=== PATIENT | female | born 1970 ===

== ENCOUNTER 2018-06-03 10:38 | Emergency (ER) | payer MEDICAID ==
[2018-06-03 11:01] VITALS: TEMP 98.5; O2SAT 99
--- NOTE | 2018-06-03 12:16 | ED PDOC ---
HPI: Skin/Bite Injury Time Seen by Provider: 06/03/18 11:12 Chief Complaint (Nursing): Abnormal Skin Integrity Chief Complaint (Provider): Abnormal Skin Integrity History Per: Patient History/Exam Limitations: no limitations Onset/Duration Of Symptoms: Days (x4 days ago) Additional Complaint(s): Celine Del Cid is a 48 year old female with no past medical history, who presents to the emergency department with a bump on her left back and left arm pit, onset x4 days ago. Patient states that it is painful but that there is no drainage. PMD: Althea Fournier Past Medical History Reviewed: Historical Data, Nursing Documentation, Vital Signs Vital Signs: Last Vital Signs Temp 98.5 F 06/03/18 11:01 Pulse 72 06/03/18 11:01 Resp 19 06/03/18 11:01 BP 143/83 06/03/18 11:01 Pulse Ox 99 06/03/18 11:01 - Medical History PMH: No Chronic Diseases - Surgical History Surgical History: No Surg Hx - Family History Family History: States: Unknown Family Hx - Home Medications Home Medications: Ambulatory Orders Medication Instructions Recorded Ibuprofen [Motrin] 600 mg PO Q6H PRN #20 tab 06/03/18 Sulfamethoxazole/Trimethoprim 1 tab PO BID #14 tab 06/03/18 [Bactrim DS 800 mg-160 mg] - Allergies Allergies/Adverse Reactions: Allergies Allergy/AdvReac Type Severity Reaction Status Date / Time No Known Allergies Allergy Verified 06/03/18 11:15 Review of Systems ROS Statement: Except As Marked, All Systems Reviewed And Found Negative Skin: Positive for: Other (painful bump on left back and armpit; no drainage ) Physical Exam - Reviewed Nursing Documentation Reviewed: Yes Vital Signs Reviewed: Yes - Physical Exam Appears: Positive for: Non-toxic, No Acute Distress Head Exam: Positive for: ATRAUMATIC, NORMOCEPHALIC Skin: Positive for: Normal Color (no vesicles, drainage, or crepitus), Warm, Dry Eye Exam: Positive for: Normal appearance, EOMI, PERRL ENT: Positive for: Normal ENT Inspection Neck: Positive for: Normal, Painless ROM, Supple Cardiovascular/Chest: Positive for: Regular Rate, Rhythm, Other (half cm non- fluctuant mass and minimally surrounding induration on left flank; quarter of cm bump on left axilla ). Negative for: Murmur Respiratory: Positive for: Normal Breath Sounds. Negative for: Respiratory Distress Gastrointestinal/Abdominal: Positive for: Normal Exam, Soft. Negative for: Tenderness Back: Positive for: Normal Inspection. Negative for: L CVA Tenderness, R CVA Tenderness, Vertebral Tenderness Extremity: Positive for: Normal ROM. Negative for: Pedal Edema, Deformity Neurologic/Psych: Positive for: Alert, Oriented (x3). Negative for: Carolin r/Sensory Deficits - ECG O2 Sat by Pulse Oximetry: 99 (RA) Pulse Ox Interpretation: Normal Medical Decision Making Medical Decision Making: Initial Time:12:14 Initial Impression: Cellulitis Initial Plan: --ED Urine Scribe Attestation: Documented by Sin Bautista, acting as a scribe for Margaret Kee MD. Provider Scribe Attestation: All medical record entries made by the Scribe were at my direction and personally dictated by me. I have reviewed the chart and agree that the record accurately reflects my personal performance of the history, physical exam, medical decision making, and the department course for this patient. I have also personally directed, reviewed, and agree with the discharge instructions and disposition. Disposition - Clinical Impression Clinical Impression: Cellulitis - Disposition Disposition Time: 12:10 Condition: GOOD Additional Instructions: EL SEGUIMIENTO CON GARCIA MEDICO EN UN PLAZO DE 2 MEZA PARA LA REEVALUACION. Prescriptions: Ibuprofen [Motrin] 600 mg PO Q6H PRN #20 tab PRN Reason: Pain, Moderate (4-7) Sulfamethoxazole/Trimethoprim [Bactrim DS 800 mg-160 mg] 1 tab PO BID #14 tab Instructions: Cellulitis and Erysipelas (Skin Infections) Forms: [employer] (Georgian), [employer] (Guyanese) Print Language: AUSTRALIAN
[2018-06-03 13:29] VITALS: BP 140/80; PULSE 70; RESP 18
== END 2018-06-03 12:37 | disposition home or self-care (01) ==
LOC: H.ER 10:38
DX: L03.90 Cellulitis, unspecified (principal)

== ENCOUNTER 2018-06-08 18:32 | Emergency (ER) | payer MEDICAID ==
[2018-06-08 19:08] VITALS: BP 146/76; PULSE 90; TEMP 98.6
[2018-06-08 19:10] VITALS: RESP 18; O2SAT 99
--- NOTE | 2018-06-08 21:19 | ED PDOC ---
HPI: Wound Care - HPI Time Seen by Provider: 06/08/18 19:23 Chief Complaint (Nursing): Abnormal Skin Integrity Chief Complaint (Provider): Wound check History Per: Patient Exam Limitations: no limitations Additional Complaint(s): 48 year old female presents to the ED for wound check. Patient was seen in this ED on 06/03 for an abscess and was given Bactrim and Ibuprofen. She states she has been taking antibiotics as prescribed and has been applying warm compresses twice a day. She reports wound began draining 2 days ago. Patient is also reporting localized pain. Denies fever or chills. PMD: Rai Dunne Past Medical History Reviewed: Historical Data, Nursing Documentation, Vital Signs Vital Signs: Last Vital Signs Temp 98.6 F 06/08/18 19:07 Pulse 90 06/08/18 19:07 Resp 18 06/08/18 19:07 BP 146/76 06/08/18 19:07 Pulse Ox 99 06/08/18 19:07 - Medical History PMH: No Chronic Diseases - Surgical History Surgical History: Cholecystectomy - Family History Family History: States: Unknown Family Hx - Home Medications Home Medications: Ambulatory Orders Medication Instructions Recorded Ibuprofen [Motrin] 600 mg PO Q6H PRN #20 tab 06/03/18 Sulfamethoxazole/Trimethoprim 1 tab PO BID #14 tab 06/03/18 [Bactrim DS 800 mg-160 mg] - Allergies Allergies/Adverse Reactions: Allergies Allergy/AdvReac Type Severity Reaction Status Date / Time No Known Allergies Allergy Verified 06/03/18 11:15 Review of Systems ROS Statement: Except As Marked, All Systems Reviewed And Found Negative Constitutional: Negative for: Fever, Chills Skin: Positive for: Other (Wound drainage) Physical Exam - Reviewed Nursing Documentation Reviewed: Yes Vital Signs Reviewed: Yes - Physical Exam Appears: Positive for: Non-toxic, No Acute Distress Head Exam: Positive for: ATRAUMATIC, NORMOCEPHALIC Skin: Positive for: Normal Color, Warm, Dry Eye Exam: Positive for: Normal appearance Neck: Positive for: Normal, Painless ROM Respiratory: Negative for: Respiratory Distress Back: Positive for: Other (3cm abscess on the left middle back with active puss drainage; localized erythema) Extremity: Positive for: Normal ROM Neurologic/Psych: Positive for: Alert, Oriented. Negative for: Motor/Sensory Deficits - ECG O2 Sat by Pulse Oximetry: 99 (RA) Pulse Ox Interpretation: Normal Medical Decision Making Medical Decision Making: Initial Impression: wound check Initial Plan: Patient instructed to do warm compresses more often, to keep area clean, and continue antibiotics. Patient advised to return to the ED if fever or chills de velop or if symptoms worsen. Scribe Attestation: Documented by Angel Luis Treviño acting as a scribe for Kimberlyn FARAH. Provider Scribe Attestation: All medical record entries made by the Scribe were at my direction and personally dictated by me. I have reviewed the chart and agree that the record accurately reflects my personal performance of the history, physical exam, medical decision making, and the department course for this patient. I have also personally directed, reviewed, and agree with the discharge instructions and disposition. Disposition - Clinical Impression Clinical Impression: Wound check, abscess - Patient ED Disposition Is Patient to be Admitted: No Counseled Patient/Family Regarding: Diagnosis, Need For Followup - Disposition Disposition: Routine/Home Disposition Time: 21:19 Condition: GOOD Additional Instructions: Continue antibiotics and warm compresses. Instructions: Abscess Incision and Drainage (DC) Forms: [employer] (Lao) Print Language: ITALIAN
== END 2018-06-08 21:23 | disposition home or self-care (01) ==
LOC: H.ER 18:32
DX: M54.9 Dorsalgia, unspecified (principal); L02.212 Cutaneous abscess of back [any part, except buttock and flank]; Z48.00 Encounter for change or removal of nonsurgical wound dressing

== ENCOUNTER 2018-07-05 15:22 | Emergency (ER) | payer MEDICAID ==
[2018-07-05 15:36] VITALS: RESP 18
[2018-07-05] MEDS ORDERED: Sodium Chloride 0.9% 1,000 ML IV SCH (16:45)
[2018-07-05 17:15] LABS: BASO % 0.4 % (0.0-2.0); EOS % 0.4 % (0.0-4.0); HEMOGLOBIN 11.6 g/dL (12.0-16.0); LYMPH # 0.7 K/uL (1.0-4.3); LYMPH % 10.2 % (20.0-40.0); MEAN CELL VOLUME 83.4 fl (81.0-99.0); MEAN CORPUSCULAR HEMOGLOBIN 28.1 pg (27.0-31.0); MEAN CORPUSCULAR HGB CONC 33.7 g/dL (33.0-37.0); MEAN PLATELET VOLUME 8.3 fl (7.2-11.7); MONO # 1.1 K/uL (0.0-0.8); MONO % 15.6 % (0.0-10.0); NEUT # 5.3 K/uL (1.8-7.0); NEUT % 73.4 % (50.0-75.0); RBC 4.13 Mil/uL (3.80-5.20); RED CELL DISTRIBUTION WIDTH 14.3 % (11.5-14.5); WHITE BLOOD COUNT 7.2 K/uL (4.8-10.8)
[2018-07-05 17:17] LABS: URINE BILIRUBIN NEGATIVE (NEGATIVE); URINE BLOOD LARGE (NEGATIVE); URINE CLARITY CLOUDY (Clear); URINE COLOR AMBER (YELLOW); URINE GLUCOSE (UA) NEG (Normal); URINE LEUKOCYTE ESTERASE NEG Leu/uL (Negative); URINE PROTEIN 30 mg/dL (NEGATIVE)
[2018-07-05 17:29] LABS: BLOOD UREA NITROGEN 8 mg/dl (7-17); GFR NON-AFRICAN AMERICAN > 60
--- NOTE | 2018-07-05 17:36 | RAD ---
Date of service: 07/05/2018 PROCEDURE: Radiographs of the chest and abdomen (obstructive series) HISTORY: nausea COMPARISON: No prior. TECHNIQUE: AP radiograph of the chest, with upright and supine radiographs of the abdomen. FINDINGS: CHEST: Lungs: Clear. Cardiovascular: Normal size heart. No pulmonary vascular congestion. No aortic atherosclerotic calcification present Pleura: No pleural fluid. No pneumothorax. Other findings: None. ABDOMEN AND PELVIS: Bowel: Gas seen in a few small-bowel loops which are mildly distended but without definitive air-fluid level formation. Gas is seen scattered throughout various large-bowel segments as well. This is a nonspecific bowel gas pattern at this time though obstruction is not felt to be definitively shown. Free air: None. Bones: Unremarkable. Other findings: No abnormal intra-abdominal calcifications. IMPRESSION: Nonspecific bowel gas pattern with gas seen in several large and small bowel loops. No free intra peritoneal gas collection. No abnormal internal calcifications. Unremarkable chest radiograph.
[2018-07-05 17:39] LABS: ALT/SGPT 131 U/L (9-52); AST/SGOT 114 U/L (14-36)
--- NOTE | 2018-07-05 19:32 | ED PDOC ---
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 denies: Fever, Chills, Vomiting, Diarrhea Exacerbating Factors: Movement Additional Complaint(s): Pt. reports lower and mid back pain radiating to flank bilaterally x 6 days, associated with nausea (-) vomiting, 9-) diarrhea. Pt. denies fevers. Pt. reports symptoms started just after eating out at a [employer] restaurant. Pt. has been taking tylenol for pain with just temporary relief. Past Medical History Reviewed: Historical Data, Nursing Documentation, Vital Signs Vital Signs: Last Vital Signs Temp 100 F H 07/05/18 15:32 Pulse 108 H 07/05/18 15:32 Resp 18 07/05/18 15:32 BP 117/76 07/05/18 15:32 Pulse Ox 98 07/05/18 15:32 - Medical History PMH: No Chronic Diseases - Surgical History Surgical History: Cholecystectomy - Family History Family History: States: Unknown Family Hx - Home Medications Home Medications: Ambulatory Orders Medication Instructions Recorded Ibuprofen [Motrin] 600 mg PO Q6H PRN #20 tab 06/03/18 Sulfamethoxazole/Trimethoprim 1 tab PO BID #14 tab 06/03/18 [Bactrim DS 800 mg-160 mg] Azithromycin [Zithromax] 250 mg PO DAILY 4 Days #4 tab 07/05/18 Ibuprofen [Motrin Tab] 600 mg PO Q8 5 Days #15 tab 07/05/18 - Allergies Allergies/Adverse Reactions: Allergies Allergy/AdvReac Type Severity Reaction Status Date / Time No Known Allergies Allergy Verified 06/03/18 11:15 Review of Systems ROS Statement: Except As Marked, All Systems Reviewed And Found Negative Constitutional: Negative for: Fever, Chills Gastrointestinal: Positive for: Abdominal Pain Physical Exam - Reviewed Nursing Documentation Reviewed: Yes Vital Signs Reviewed: Yes - Physical Exam Appears: Positive for: Well, Non-toxic Head Exam: Positive for: ATRAUMATIC Skin: Positive for: Normal Color, Warm, Dry Cardiovascular/Chest: Positive for: Regular Rate, Rhythm Respiratory: Positive for: Normal Breath Sounds Gastrointestinal/Abdominal: Positive for: Normal Exam, Soft, Tenderness (mild suprapubic tenderness. ) Back: Positive for: Normal Inspection, L CVA Tenderness, R CVA Tenderness. Neg ative for: Vertebral Tenderness - Laboratory Results Result Diagrams: 07/05/18 17:13 07/05/18 17:13 - ECG O2 Sat by Pulse Oximetry: 98 Medical Decision Making Medical Decision Making: IV access established, labs sent, UA sent IV NS IV Toradol IV Zofran Obs. Series: napd, nonobstructive bowel gas pattern; as read by me CT abd/pelvis: Dense LLL consolidation is noted compatible with pneumonia Enlarged bulky uterus c/w duffuse adenomyosis vs. myomatosis. All the above ct results d/w pt. Zithro po given for pneumonia. Stressed importance of f/u for uterine findings. On reassessment, pt. reports feeling better, but still has bilateral lower back and b/l CVA tenderness. Labs as above, include a mild transaminitis. Pt denies recent etoh but reports she has been taking tylenol frequently over past 5-6 days for pain. On re-exam, no abd. tenderness, no RUQ tenderness or hepatomegaly. Disposition - Clinical Impression Clinical Impression: Pneumonia - Patient ED Disposition Is Patient to be Admitted: No Counseled Patient/Family Regarding: Studies Performed, Diagnosis, Need For Followup, Rx Given - Disposition Disposition: Routine/Home Disposition Time: 20:18 Condition: STABLE Prescriptions: Azithromycin [Zithromax] 250 mg PO DAILY 4 Days #4 tab Ibuprofen [Motrin Tab] 600 mg PO Q8 5 Days #15 tab Instructions: Pneumonia, Adult (DC) Forms: [employer] (Guamanian), [facility] ED School/Work Excuse
[2018-07-05 19:41] VITALS: BP 128/73; PULSE 84; TEMP 99
[2018-07-05 20:13] VITALS: O2SAT 98
--- NOTE | 2018-07-06 10:23 | CT ---
Date of service: 07/05/2018 PROCEDURE: CT Abdomen and Pelvis without intravenous contrast HISTORY: bilateral flank pain, hematuria COMPARISON: None. TECHNIQUE: Helical CT of the abdomen and pelvis was performed without oral or intravenous contrast as per referring physician request. Coronal and sagittal reformats were generated. Contrast dose: None Radiation dose: Total exam DLP = 673.21 mGy-cm. This CT exam was performed using one or more of the following dose reduction techniques: Automated exposure control, adjustment of the mA and/or kV according to patient size, and/or use of iterative reconstruction technique. FINDINGS: LOWER THORAX: Left lower lobe infiltrate. Right base clear. No cardiomegaly or pleural effusion bilaterally. LIVER: Unremarkable. No gross lesion or ductal dilatation. GALLBLADDER AND BILE DUCTS: Surgically absent gallbladder. PANCREAS: Unremarkable. No gross lesion or ductal dilatation. SPLEEN: Unremarkable. ADRENALS: Unremarkable. No mass. KIDNEYS AND URETERS: Unremarkable. No hydronephrosis. No solid mass. VASCULATURE: Unremarkable. No aortic aneurysm. No aortic atherosclerotic calcification or mural plaque present. BOWEL: Unremarkable. No obstruction. No gross mural thickening. APPENDIX: Unremarkable. Normal appendix. PERITONEUM: Unremarkable. No free fluid. No free air. LYMPH NODES: Unremarkable. No enlarged lymph nodes. BLADDER: Unremarkable. REPRODUCTIVE: Enlarged uterus potentially from myomatous uterine changes though this is definite. Follow-up ultrasound is recommended for added characterization. BONES: No acute fracture. OTHER FINDINGS: None. IMPRESSION: 1. No definite acute abdominal or pelvic findings. No radiodense urolithiasis or obstructive uropathy bilaterally. No significant perinephric reaction bilaterally. 2. Bulky uterus suggestive of possible underlying myomatous uterine changes. Follow ultrasonography may be helpful for further characterization. 3. Incidental left lower lobe pneumonitis. Concordant preliminary report from [email or web address], 07/05/2018.
== END 2018-07-05 20:47 | disposition home or self-care (01) ==
LOC: H.ER 15:22
DX: J18.9 Pneumonia, unspecified organism (principal)
CPT/HCPCS: 74022; 74176; 80053; 81003; 81025; 85025; 87086; 96374; 99285; J2405; J7030

== ENCOUNTER 2019-01-03 15:26 | Emergency (ER) | payer MEDICAID ==
[2019-01-03 15:41] VITALS: TEMP 98.7
--- NOTE | 2019-01-03 16:05 | ED PDOC ---
Lower Extremity Pain/Injury Time Seen by Provider: 01/03/19 15:41 Chief Complaint (Nursing): Lower Extremity Problem/Injury Chief Complaint (Provider): Lower Extremity Problem/Injury History Per: Patient History/Exam Limitations: no limitations Onset/Duration Of Symptoms: Days Current Symptoms Are (Timing): Still Present Additional Complaint(s): 48 y/o female with no significant PMHx presents to the ED for evaluation of lower extremity pain s/p fall, onset one day ago. Patient states she was wearing sneakers, walking down a narrow hallway when there was an unexpected slight dip in elevation causing her to step incorrectly twisting her right ankle and falling. Patient notes pain has worsened since fall and is worse with movements. Patient states she cannot ambulate on the ankle due to pain. Patient reports she has had to put most of her weight on her left foot additionally causing her pain. Patient states pain in the right ankle radiates up the leg to below the knee. Patient notes of also experiencing pain to the left mid-back. However, patient denies hitting against any objects. Patient believes back pain could be due to a twisting motion she did to catch her fall. PMD: Rai Dove Past Medical History Reviewed: Historical Data, Nursing Documentation, Vital Signs Vital Signs: Last Vital Signs Temp 98.7 F 01/03/19 15:37 Pulse 84 01/03/19 15:37 Resp 20 01/03/19 15:37 BP 116/64 01/03/19 15:37 Pulse Ox 98 01/03/19 15:37 Primary Care Provider: Rai Dove - Medical History PMH: No Chronic Diseases - Surgical History Surgical History: Cholecystectomy - Family History Family History: States: Unknown Family Hx - Living Arrangements Living Arrangements: With Family - Home Medications Home Medications: Ambulatory Orders Medication Instructions Recorded Ibuprofen [Motrin] 600 mg PO Q6H PRN #20 tab 06/03/18 Sulfamethoxazole/Trimethoprim 1 tab PO BID #14 tab 06/03/18 [Bactrim DS 800 mg-160 mg] Azithromycin [Zithromax] 250 mg PO DAILY 4 Days #4 tab 07/05/18 Ibuprofen [Motrin Tab] 600 mg PO Q8 5 Days #15 tab 07/05/18 Naproxen 500 mg PO BID PRN #30 tab 01/03/19 traMADol [Ultram] 50 mg PO TID PRN #9 tab 01/03/19 - Allergies Allergies/Adverse Reactions: Allergies Allergy/AdvReac Type Severity Reaction Status Date / Time No Known Allergies Allergy Verified 01/03/19 15:37 Review of Systems ROS Statement: Except As Marked, All Systems Reviewed And Found Negative Musculoskeletal: Positive for: Back Pain, Leg Pain, Foot Pain Physical Exam - Reviewed Nursing Documentation Reviewed: Yes Vital Signs Reviewed: Yes - Physical Exam Comments: GENERAL APPEARANCE: Patient is awake, alert, oriented x 3, in no acute distress. SKIN: Warm, dry; (-) cyanosis. EYES: (-) conjunctival pallor. ENMT: Mucous membranes moist. NECK: (-) tenderness, (-) stiffness, (-) lymphadenopathy. CHEST AND RESPIRATORY: (-) rales, (-) rhonchi, (-) wheezes; breath sounds equal bilaterally. HEART AND CARDIOVASCULAR: (-) irregularity; (-) murmur, (-) gallop. ABDOMEN AND GI: Soft; (-) tenderness; (-) palpable mass. BACK: (-) midline tenderness, (+) left lumbar muscle tenderness, (-) ecchymosis (-) mild spasm, (-) direct bony tenderness, (-) deformity. Straight leg raising (-) bilaterally. (-)CVAT EXTREMITIES: Full ROM of all toes, knees and hips. (+) decreased dorsiflexion of the right ankle, (+) bilateral lateral malleolus tenderness, (-) medial malleolous tenderness, (+) swelling to the lateral ankle (right > left), (-) deformity. Distal pulses 2+ bilaterally. Achilles tendon intact and nontender. NEURO AND PSYCH: Mental status as above. Intact sensation bilaterally; normal strength in extension of the knees, plantar and dorsiflexion of the toes. DTRs symmetric. - ECG O2 Sat by Pulse Oximetry: 98 (RA) Pulse Ox Interpretation: Normal Medical Decision Making Medical Decision Making: Time: 1553 Impression: Ankle pain s/p fall Rule out fractures Plan: -- Will order medications for pain and muscle relaxation -- ED Urine -- Ankle Complete 3 Views BI XR -- Flexeril 10 mg PO -- Motrin 600 mg PO -- Tibia Fibula Right Xr -- Urinalysis Date of service: 01/03/2019 PROCEDURE: Radiographs of the right tibia and fibula. HISTORY: fall, lateral pain and swelling COMPARISON: None available TECHNIQUE: Frontal and lateral views obtained. 2 views obtained. FINDINGS: BONES: No fracture or destructive lesion. JOINT SPACES: Unremarkable. OTHER FINDINGS: None. IMPRESSION: Unremarkable radiographs of the right tibia and fibula. Date of service: 01/03/2019 PROCEDURE: Bilateral Ankle Radiographs. HISTORY: fall, b/l lateral pain and swelling COMPARISON: None available. TECHNIQUE: 6 views obtained. FINDINGS: BONES: Right Ankle: Oblique fracture distal fibula. No tibial fracture. Left Ankle: Normal. No fracture. JOINTS: Right Ankle: Normal. No osteoarthritis. Ankle mortise maintained. Talar dome intact. Left Ankle: Normal. No osteoarthritis. Ankle mortise maintained. Talar dome intact. SOFT TISSUES: Right Ankle: Lateral soft tissue swelling Left Ankle: Normal. OTHER FINDINGS: None. IMPRESSION: Oblique nondisplaced fracture distal right fibula. 17:10 spoke to podiatry who will come see pt Pt seen by podiatry, posterior splint placed, non weight bearing, clinic f/u in 1 week 19:40 on re eval pt reports back pain is resolved, but continues with a lot of ankle pain, will give Rx for Tramadol No results on [place] [employer] Rx search for [place], YAYO [place] Discussed results, diagnosis, treatment, return precautions and f/u with pt who is understanding, in agreement and stable for dc Scribe Attestation: Documented by Víctor Gonsalves, acting as a scribe for Orville Choi PA-C. Provider Scribe Attestation: All medical record entries made by the Scribe were at my direction and personally dictated by me. I have reviewed the chart and agree that the record accurately reflects my personal performance of the history, physical exam, medical decision making, and the department course for this patient. I have also personally directed, reviewed, and agree with the discharge instructions and disposition. Disposition - Clinical Impression Clinical Impression: Fracture of fibula, right, closed, Low back pain, Fall from slip, trip, or stumble - Patient ED Disposition Is Patient to be Admitted: No Counseled Patient/Family Regarding: Studies Performed, Diagnosis, Need For Followup, Rx Given - Disposition Referrals: Podiatry Clinic [Outside] Disposition: Routine/Home Disposition Time: 19:43 Condition: STABLE Additional Instructions: Roslyn por dejarnos cuidar de ti hoy. La atencin mdica de emergencia que recibi hoy se dirigi a luis manuel sntomas agudos. Si le recetaron algn medicamento, llnelo y tmelo segn las indicaciones. No conduzca, opere maquinaria pesada o tome alcohol cuando tome tramadol. Descansa, hielo y eleva tu pierna. Usa muletas para no poner peso en el pie. Mantenga la frula limpia y seca, mantngala hasta el seguimiento. Los sntomas pueden tardar varios polanco en resolverse. Regrese al Departamento de Emergencias si luis manuel sntomas empeoran, no mejoran o si tiene otros problemas. Comunquese con singh mdico dentro de 2 polanco para annelise nueva evaluacin y julia un seguimiento o llame a emmanuelle de los mdicos / clnicas a los que craig sido referido y que figuran en el formulario de Informacin de visita al paciente que se incluye en singh paquete de sandor. Lleve todos los documentos que recibi al momento del sandor junto con los medicamentos que est tomando para singh visita de seguimiento. Nuestro tratamiento no puede reemplazar la atencin mdica continua por parte de un proveedor de atencin primaria (PCP) fuera del departamento de emergencias. Prescriptions: Naproxen 500 mg PO BID PRN #30 tab PRN Reason: Pain, Moderate (4-7) traMADol [Ultram] 50 mg PO TID PRN #9 tab PRN Reason: Pain, Severe (8-10) Instructions: Low Back Pain (DC), Fibula Fracture (DC) Forms: [facility] ED School/Work Excuse Print Language: PORTUGUESE - POA Present On Arrival: Falls Or Trauma
[2019-01-03 16:55] LABS: SQUAMOUS EPITHIAL 11 /hpf (0-5); URINE BILIRUBIN NEGATIVE (NEGATIVE); URINE BLOOD MODERATE (NEGATIVE); URINE CLARITY CLOUDY (Clear); URINE COLOR YELLOW (YELLOW); URINE GLUCOSE (UA) NEG (NEGATIVE); URINE LEUKOCYTE ESTERASE LARGE Leu/uL (Negative); URINE PROTEIN NEGATIVE (NEGATIVE); URINE UROBILINOGEN 0.2-1.0 mg/dL (0.2-1.0)
--- NOTE | 2019-01-03 16:56 | RAD ---
Date of service: 01/03/2019 PROCEDURE: Radiographs of the right tibia and fibula. HISTORY: fall, lateral pain and swelling COMPARISON: None available TECHNIQUE: Frontal and lateral views obtained. 2 views obtained. FINDINGS: BONES: No fracture or destructive lesion. JOINT SPACES: Unremarkable. OTHER FINDINGS: None. IMPRESSION: Unremarkable radiographs of the right tibia and fibula.
--- NOTE | 2019-01-03 16:59 | RAD ---
Date of service: 01/03/2019 PROCEDURE: Bilateral Ankle Radiographs. HISTORY: fall, b/l lateral pain and swelling COMPARISON: None available. TECHNIQUE: 6 views obtained. FINDINGS: BONES: Right Ankle: Oblique fracture distal fibula. No tibial fracture. Left Ankle: Normal. No fracture. JOINTS: Right Ankle: Normal. No osteoarthritis. Ankle mortise maintained. Talar dome intact. Left Ankle: Normal. No osteoarthritis. Ankle mortise maintained. Talar dome intact. SOFT TISSUES: Right Ankle: Lateral soft tissue swelling Left Ankle: Normal. OTHER FINDINGS: None. IMPRESSION: Oblique nondisplaced fracture distal right fibula.
--- NOTE | 2019-01-03 19:03 | CP.PCM.CON ---
History of Present Illness - History of Present Illness History of Present Illness: Podiatry consult note for Dr. Ramirez 48 y/o female with no significant PMHx presents to the ED for evaluation of lower extremity pain s/p fall, onset one day ago. Patient states she was drinking alcohol last night and twisted her right ankle and fell. Patient states she is unable to walk on the right foot because of pain. Patient reports she has had to put most of her weight on her left foot additionally causing her pain. Patient states pain in the right ankle radiates up the leg to below the knee. Rates her pain 10/10. Denies any other pedal complains. Denies f/n/v/sob. PMD: Rai Dove Pmhx: none Pshx: cholecystectomy Allergies: NKFDA Social hx: admits to drinking alcohol, denies smoking or using recreational drugs Past Patient History - Past Social History Smoking Status: Never Smoked - CARDIAC Hx Cardiac Disorders: No - PSYCHIATRIC Hx Substance Use: No - SURGICAL HISTORY Hx Cholecystectomy: Yes - ANESTHESIA Hx Anesthesia: Yes Hx Anesthesia Reactions: No Meds Allergies/Adverse Reactions: Allergies Allergy/AdvReac Type Severity Reaction Status Date / Time No Known Allergies Allergy Verified 01/03/19 15:37 Physical Exam - Constitutional Appears: Well, Non-toxic, No Acute Distress - Head Exam Head Exam: ATRAUMATIC, NORMOCEPHALIC - Eye Exam Eye Exam: Normal appearance - ENT Exam ENT Exam: Mucous Membranes Moist - Respiratory Exam Respiratory Exam: NORMAL BREATHING PATTERN - Cardiovascular Exam Cardiovascular Exam: REGULAR RHYTHM, +S1, +S2 - Extremities Exam Additional comments: Bilateral lower extremity exam: Vascular: Dp/PT 2/4, CFT <3 secs x 10, TG warm to warm, minimal edema to lateral aspect of the right ankle, no ecchymosis or erythema noted derm: no open lesions, no clinical signs of infection, no pitting edema to the ankle ortho: pain with ROM of the right ankle, pain with inversion and eversion of the right ankle, pain with direct palpation to the right distal leg, pain with compression of the distal leg. neuro: protective sensation grossly intact. - Neurological Exam Neurological exam: Alert, Oriented x3 Results - Vital Signs Recent Vital Signs: Last Vital Signs Temp 98.7 F 01/03/19 15:37 Pulse 84 01/03/19 15:37 Resp 20 01/03/19 15:37 BP 116/64 01/03/19 15:37 Pulse Ox 98 01/03/19 17:13 - Labs Labs: Laboratory Results - last 24 hr 01/03/19 16:42 Urine Color Yellow Urine Clarity Cloudy Urine pH 6.0 Ur Specific Bells 1.015 Urine Protein Negative Urine Glucose (UA) Neg Urine Ketones Negative Urine Blood Moderate Urine Nitrate Negative Urine Bilirubin Negative Urine Urobilinogen 0.2-1.0 Ur Leukocyte Esterase Large Urine RBC (Auto) 2 Urine Microscopic WBC 2 Ur Squamous Epith Cells 11 H Assessment & Plan - Assessment and Plan (Free Text) Assessment: 48 yo female seen and evaluated for oblique fracture of the distal fibula and possible syndesmotic injury to the right leg. Plan: Patient seen and evaluated chart, labs, vitals and x-rays reviewed. x-rays reviewed; oblique fracture of the lateral malleolus Well padded posterior splint applied patient to be NWB to the RLE ; crutch trained by the ED patient advised to RICE patient to take pain medications prn Patient showed verbal understanding Patient to follow up Stress view to be ordered to evaluate deltoid ligament when patient follows up. thank you for the consult
[2019-01-03 20:19] VITALS: BP 126/74; PULSE 89; RESP 18
[2019-01-04 00:34] VITALS: O2SAT 98
== END 2019-01-03 20:17 | disposition home or self-care (01) ==
LOC: H.ER 15:26
DX: S82.201A Unspecified fracture of shaft of right tibia, initial encounter for closed fracture (principal); S82.831A Other fracture of upper and lower end of right fibula, initial encounter for closed fracture; W01.0XXA Fall on same level from slipping, tripping and stumbling without subsequent striking against object, initial encounter; Z90.49 Acquired absence of other specified parts of digestive tract; M54.5 Low back pain